=== PATIENT | female | born 1990 | race Caucasian/White ===

== ENCOUNTER 2019-08-03 13:02 | Inpatient (IN) | payer MEDICAID ==
[~2019-08-03] VITALS: Ht 162.6 cm; Wt 83.2 kg
[~2019-08-03 13:02] MED LIST: PREN-21 PO
[2019-08-03 13:46] VITALS: BP 115/62; PULSE 108; RESP 20; Ht 162.6 cm; Wt 83.2 kg
[2019-08-03] MEDS ORDERED: LIDOCAINE 1% (MPF) 30 ML INJ INJ PRN (14:30)
[2019-08-03] MEDS ORDERED: MISOPROSTOL 200 MCG TAB PR PRN (14:30)
[2019-08-03] MEDS ORDERED: CARBOPROST 250 MCG INJ IM PRN (14:30)
[2019-08-03] MEDS ORDERED: OXYTOCIN 30 UNITS/LR 500 ML IV SCH ×2 (14:30)
[2019-08-03] MEDS ORDERED: OXYTOCIN 30 UNITS/LR 500 ML IV PRN (14:30)
[2019-08-03] MEDS ORDERED: METHYLERGONOVINE 0.2 MG INJ IM PRN (14:30)
[2019-08-04] MEDS ORDERED: PRENATAL VITAMIN PO SCH (09:00)
[2019-08-04] MEDS ORDERED: DIPHTH/TET/ACEL PERTUSS (ADULT) 0.5 ML VIAL IM* ONE (11:30)
== END 2019-08-04 14:10 | disposition home or self-care (01) | DRG 833 ==
LOC: OBT 13:02 → L-D 13:04 → OBT 16:50 → L-D 16:50
PROVIDERS: ADMIT Obstetrics & Gynecology Gynecology; ATTEND Obstetrics & Gynecology Gynecology
DX: O60.02 Preterm labor without delivery, second trimester (principal); Z3A.27 27 weeks gestation of pregnancy; O30.032 Twin pregnancy, monochorionic/diamniotic, second trimester; O24.419 Gestational diabetes mellitus in pregnancy, unspecified control
CPT/HCPCS: 76815; 76817; 76818; 80053; 81001; 82962; 83036; 85025; 86592; 86703; 86850; 86900; 86901; 87340; 87591; 90715; G0463